=== PATIENT | female | born 1940 | race Caucasian/White ===

== ENCOUNTER → 2018-09-01 | Outpatient (CLI) | payer OTHER ==
--- NOTE | 2018-09-02 12:50 | CARD ---
MR#: [id number] Date of Study: 09/01/2018 Ordering Physician: RENEE ZHENG, Referring Physician: RENEE ZHENG, Tech: Kaci Uribe [facility] APPROVED REPORT EXAM: Two-dimensional and M-mode echocardiogram with Doppler and color Doppler. Other Information Quality : Technically LimitedHR: 75bpm Rhythm : OtherTechnically limited study due to body habitus. INDICATION Arrhythmia 2D DIMENSIONS RVDd2.5 (2.9-3.5cm)Left Atrium(2D)3.2 (1.6-4.0cm) IVSd0.9 (0.7-1.1cm)Aortic Root(2D)2.4 (2.0-3.7cm) LVDd4.1 (3.9-5.9cm)LVOT Diameter1.7 (1.8-2.4cm) PWd0.7 (0.7-1.1cm)LVDs2.1 (2.5-4.0cm) FS (%) 49.3 %SV58.6 ml LVEF(%)81.1 (>50%) Aortic Valve AoV Peak Raj.113.0cm/sAoV VTI21.2cm AO Peak GR.5.1mmHgLVOT Peak Raj.99.2cm/s AO Mean GR.3mmHgAVA (VMAX)1.95cm2 ELSY (VTI)2.00cm2 Mitral Valve MV E Itimqvdn49.5cm/sMV DECEL PTAU996dp MV A Lpucdomx88.0cm/sE/A Ratio1.2 MV A Udqvzttz725wj Pulmonary Valve PV Peak Xuerpuin83.5cm/s Tricuspid Valve TR P. Mhemmczx057gx/sRAP [id number] TR Peak Gr.80rcMjAEBE85ywZy Pulmonary Vein S1 Ofequmnm03.5cm/sD2 Bbdagebz35.8cm/s PVa ripqouxa53zjfe LEFT VENTRICLE The left ventricle is normal size. There is normal left ventricular wall thickness. The left ventricl e is hyperdynamic. The Ejection Fraction is >70%. There is normal LV segmental wall motion. Transmitr al Doppler flow pattern is Grade II-pseudonormal filling dynamics. RIGHT VENTRICLE The right ventricle is normal size. There is normal right ventricular wall thickness. The right ventr icular systolic function is normal. ATRIA The left atrium size is normal. The right atrium size is normal. The interatrial septum is intact wit h no evidence for an atrial septal defect or patent foramen ovale as noted on 2-D or Doppler imaging. AORTIC VALVE The aortic valve is not well visualized. Doppler and Color Flow revealed no significant aortic regurg itation. There is no significant aortic valvular stenosis. MITRAL VALVE The mitral valve is normal in structure and function. There is no evidence of mitral valve prolapse. There is no mitral valve stenosis. Doppler and Color Flow revealed no mitral valve regurgitation note d. TRICUSPID VALVE The tricuspid valve is normal in structure and function. Doppler and Color Flow revealed mild tricusp id regurgitation. There is moderate pulmonary hypertension. The PA pressure was estimated at 40 mmHg. There is no tricuspid valve prolapse or vegetation. There is no tricuspid valve stenosis. PULMONIC VALVE The pulmonic valve is not well visualized. GREAT VESSELS The aortic root is normal in size. The ascending aorta is normal in size. The IVC is normal in size a nd collapses >50% with inspiration. PERICARDIAL EFFUSION There is no evidence of significant pericardial effusion. Critical Notification Critical Value: No <Conclusion> The left ventricle is hyperdynamic. The Ejection Fraction is >70%. There is normal LV segmental wall motion. Doppler and Color Flow revealed mild tricuspid regurgitation. There is moderate pulmonary hypertensio n. The PA pressure was estimated at 40 mmHg. Signed by : Renee Zheng, Electronically Approved : 09/02/2018 12:50:12
== END | disposition home or self-care (01) ==
LOC: ECHO 12:57
PROVIDERS: ATTEND Internal Medicine Cardiovascular Disease
DX: I07.1 Rheumatic tricuspid insufficiency (principal); I27.20 Pulmonary hypertension, unspecified
CPT/HCPCS: 93306